=== PATIENT | male | born 1990 | race Hispanic/Latino ===

== ENCOUNTER 2022-03-25 10:44 | Emergency (ER) | payer SELFPAY ==
--- OUTSIDE RECORDS SUMMARY | 2022-03-25 10:47 | XMS REPORT | Continuity of Care Document ---
:1990 Author Organization [facility] t Address [address] [place] [address] Care Team Providers Name Role Phone PCP, DOES NOT HAVE A Primary Care Physician Unavailable Lab, Fam Pob I Attending Clinician Unavailable Alexandra KHALIL Attending Clinician Sarah Guzman MD Attending Clinician Sarah GUZMAN Attending Clinician Unavailable Sarah GUZMAN Admitting Clinician Unavailable Problems This patient has no known problems. Allergies, Adverse Reactions, Alerts Allergy Allergy Status Severity Reaction(s) Onset Inactive Treating Comm ents Source Name Type Date Date Clinician NO KNOWN Drug Active Univers ALLERGIE Class ity of S [facility] Social History Social Habit Start Date Stop Date Quantity Comments Source [facility] to SARS-CoV-2 Not sure [facility] [place] (event) [facility] Smoking Status Start Date Stop Date Source Unknown if ever smoked Universit y [facility] Medications Ordered Filled Start Stop Current Ordering Indication Dosage Frequency Signature Comments Components Source Medication Medication Date Date Medication? Clinician (SIG) Name Name cephALEXin 2020- No 500mg 500 mg, Un farhana (KEFLEX) 02-19 Oral, ONCE ity of capsule 500 20:45: 19:43 NOW, 1 Kvng as mg 00 :00 dose, [facility] 02/20/20 at Branch 1545, KRISSY
Re ason for Anti-Infec tive: Empiric Non-Surgic al Prophylaxi s
Durat ion of therapy: 72 hours acetaminoph 2019-0 Yes [id number] 1{tbl} Take 1 Univers en-codeine 02-19 [id number] tablet by it y of 300-30 mg 00:00: mouth [place] tablet 00 every 6 Medical (six) Branch hours as needed for Pain (scale 4-6) or Pain (scale 7-10). acetaminoph Yes [id number] 1{tbl} Take 1 Univers en-codeine 02-19 [id number] tablet by it y of 300-30 mg 00:00: mouth [place] tablet 00 every 6 Medical (six) Branch hours as needed for Pain (scale 4-6) or Pain (scale 7-10). cephALEXin 2020- No [id number] 500mg Take 1 Univers 500 mg 02-19 [id number] capsule by ity of capsule 00:00: 04:59 mouth 3 [place] 00 :00 (three) Medical times Branch daily for 10 days. Vital Signs Vital Name Observation Time Observation Value Comments Source Systolic blood 2020-02-20 19:26:58 116 mm[Hg] [facility] 2020-02-20 19:26:58 61 mm[Hg] [facility] 2020-02-20 19:26:58 86 /min [facility] Respiratory rate 2020-02-20 19:26:58 16 /min [facility] Oxygen saturation in 2020-02-20 19:26:58 98 /min [facility] blood by [facility] Pulse oximetry [place] Body weight 2020-02-20 16:13:00 85.276 kg [facility] Procedures Procedure Date / Time Performed Performing Clinician Sourc e XR ELBOW >3 VW LEFT 2020-02-20 17:04:58 Onur Guzman [facility] HI LAYR CLOS WND 2020-02-20 16:09:00 Onur Guzman [facility] TRUNK,ARM,LEG <2.5 CM Medical Br anch Encounters Start End Encounter Admission Attending Care Care Encounter Source Date/Time Date/Time Type Type Clinicians Facility Department ID 2020-05-01 2020-05-01 Laboratory Lab, Adc Fam Pob I [facility] [id number]. [id number] Univers 08:47:29 09:07:29 Only AlexandraGoPollGo [id number] ity of [place] [id number] Kvng as Professio [id number] Sc dical nal [address] 2020-05-01 2020-05-01 Outpatient R [facility] [id number] Univers 08:40:00 08:40:00 ity [facility] 2020-02-20 2020-02-20 Emergency Vasut, TRAUMA [id number] Univers 11:14:54 15:26:00 Onur Smith IVANHOE [id number] it y of [id number] [place] [id number] [address] 2020-02-20 2020-02-20 Emergency X VASUT, [facility] ERT [id number] Univers 11:14:54 15:26:00 ONUR [facility] Results Test Description Test Time Test Results Result Source Comments Comments Laceration 2020-01-26 Onur Guzman MD ? ? Un iversity of Repair 7 02/20/2020 ?3:12 [facility] ica 16:09:00 PMLaceration [place] RepairPerformed by: Onur Guzman MDAuthorized by: Onur Guzamn MD Consent: ?Consent obtained: ?Verbal ?Consent given by: ?Patient ?Risks discussed: ?Infection, pain, retained foreign body, poor cosmetic result, need for additional repair, tendon damage, vascular damage, poor wound healing and nerve damage ?Alternatives discussed: ?No treatment, delayed treatment and referralAnesthesia (see MAR for exact dosages): ?Anesthesia method: ?Local infiltration ?Local anesthetic: ?Lidocaine 1% w/o epiLaceration details: ?Location: ?Shoulder/arm ?Shoulder/arm location: ?L elbowRepair type: ?Repair type: ?IntermediatePre-proce dure details: ?Preparation: ?Patient was prepped and draped in usual sterile fashion and imaging obtained to evaluate for foreign bodiesExploration: ?Hemostasis achieved with: ?Direct pressure ?Wound exploration: wound explored through full range of motion and entire depth of wound probed and visualized ? ?Contaminated: yes ?Treatment: ?Area cleansed with: ?Saline ?Amount of cleaning: ?Extensive ?Irrigation solution: ?Sterile saline ?Irrigation method: ?Pressure wash ?Visualized foreign bodies/material removed: no ?Skin repair: ?Repair method: ?Sutures ?Suture size: ?3-0 ?Suture material: ?ProleneApproximation: ?Approximation: ?LoosePost-procedure details: ?Dressing: ?Antibiotic ointment, non-adherent dressing, sterile dressing and tube gauze ?Patient tolerance of procedure: ?Tolerated well, no immediate complications
[2022-03-25 12:01] LABS: Potassium 3.8 mmol/L (3.5-5.1)
--- NOTE | 2022-03-25 12:47 | RAD REPORT ---
EXAM DESCRIPTION: CT - Lower Ext Angio - 03/25/2022 12:34 pm CLINICAL HISTORY: Trauma, possible dislocation COMPARISON: No comparisons FINDINGS: CT angiogram of the left lower extremity arterial system was performed. No significant flow abnormality of the left lower extremity arterial system is seen. No soft tissue mass or hematoma. No acute fracture seen. Small to moderate knee joint effusion is maribel dent. IMPRESSION: No significant flow abnormality is seen in the left lower extremity arterial system. Small to moderate knee joint effusion. All CT scans are performed using dose optimization technique as appropriate and may include automated exposure control or mA/KV adjustment according to patient size.
--- NOTE | 2022-03-25 12:51 | EDPHYS ---
Physician Documentation [facility] Name: Brennan Muniz Age: 31 yrs Sex: Male : 1990 Arrival Date: 03/25/2022 Time: 10:46 Bed 12 Private MD: ED Physician Devonte Mayer HPI: 03/25 12:50 This 31 yrs old Male presents to ER via Wheelchair with complaints of Knee ms3 Pain. 12:50 The patient presents with pain, that is acute. The complaints affect the left knee. ms3 Context: The problem was sustained outdoors, resulted from jumped up to catch a ball while playing kickball. Onset: The symptoms/episode began/occurred yesterday. Modifying factors: The symptoms are alleviated by nothing. the symptoms are aggravated by movement. Associated signs and symptoms: The patient has no apparent associated signs or symptoms. ROS: 12:50 Constitutional: Negative for fever, and chills. Neck: Negative for injury, pain, and ms3 swelling, Cardiovascular: Negative for chest pain, and palpitations. Respiratory: Negative for shortness of breath, cough, wheezing, and pleuritic chest pain, Abdomen/GI: Negative for abdominal pain, nausea, vomiting, diarrhea, and constipation. 12:50 MS/extremity: Positive for pain, tenderness. 12:50 All other systems are negative. Exam: 12:50 Constitutional: This is a well developed, well nourished patient who is awake, alert, ms3 and in no acute distress. Head/Face: Normocephalic, atraumatic. Neck: Trachea midline, no cervical lymphadenopathy. Supple, full range of motion without nuchal rigidity, or vertebral point tenderness. No Meningismus. Chest/axilla: Normal chest wall appearance and motion. Nontender with no deformity. Cardiovascular: Regular rate and rhythm with a normal S1 and S2. No gallops, murmurs, or rubs. Normal PMI, no JVD. No pulse deficits. Respiratory: Lungs have equal breath sounds bilaterally, clear to auscultation and percussion. No rales, rhonchi or wheezes noted. No increased work of breathing, no retractions or nasal flaring. Abdomen/GI: Soft, non-tender, with normal bowel sounds. No distension or tympany. No guarding or rebound. No evidence of tenderness throughout. Skin: Warm, dry with normal turgor. Normal color with no rashes, no lesions, and no evidence of cellulitis. 12:50 Musculoskeletal/extremity: Extremities: noted in the left knee: pain, swelling, tenderness. Vital Signs: 11:30 BP 124 / 86; Pulse 89; Resp 16; Temp 98.0; Pulse Ox 100% on R/A; iw MDM: 11:16 Patient medically screened. ms3 12:50 Differential diagnosis: dislocation, closed fracture, contusion. Data reviewed: vital ms3 signs, nurses notes, lab test result(s), radiologic studies. ED course: Discussed lab, CTA lower extremity, physical exam findings with patient. Patient to follow-up with Dr. Webb in 2 to 3 days. Patient understands and agrees with plan. All questions were answered. Return precautions discussed include worsening symptoms, or any other concerns. On reevaluation patient symptoms improved, patient is alert and oriented x4, no apparent distress, nontoxic appearing, no signs of compartment syndrome.. 03/25 11:20 Order name: BMP; Complete Time: 12:05 ms3 03/25 11:24 Order name: Lower Ext Angio; Complete Time: 12:49 EDMS 03/25 12:51 Order name: Knee Immobilizer; Complete Time: 13:41 ms3 03/25 12:51 Order name: Crutches; Complete Time: 13:42 ms3 Administered Medications: No medications were administered Disposition Summary: 03/25/22 12:50 Discharge Ordered Location: Home ms3 Condition: Stable ms3 Diagnosis - Pain in left knee ms3 - Effusion, left knee ms3 Followup: ms3 - With: Steven Webb MD - When: 2 - 3 days - Reason: Re-evaluation by your physician Discharge Instructions: - Discharge Summary Sheet ms3 - Knee Effusion ms3 Forms: - Medication Reconciliation Form ms3 - Thank You Letter ms3 - Antibiotic Education ms3 - Work release form iw - Prescription Opioid Use ms3 Signatures: Dispatcher [employer] EDMS Devonte Mayer DO DO ms3
--- NOTE | 2022-03-25 12:51 | ER ---
Nurse's Notes [facility] Name: Brennan Muniz Age: 31 yrs Sex: Male : 1990 Arrival Date: 03/25/2022 Time: 10:46 Bed 12 Private MD: Diagnosis: Pain in left knee;Effusion, left knee Presentation: 03/25 11:18 Chief complaint: Patient states: left knee pain since last night. Coronavirus screen: iw At this time, the client does not indicate any symptoms associated with coronavirus-19. Ebola Screen: Patient negative for fever greater than or equal to 101.5 degrees Fahrenheit, and additional compatible Ebola Virus Disease symptoms Patient denies exposure to infectious person. Patient denies travel to an Ebola-affected area in the 21 days before illness onset. No symptoms or risks identified at this time. Initial Sepsis Screen: Does the patient meet any 2 criteria? No. Patient's initial sepsis screen is negative. Does the patient have a suspected source of infection? No. Patient's initial sepsis screen is negative. Risk Assessment: Do you want to hurt yourself or someone else? Patient reports no desire to harm self or others. Onset of symptoms was March 24, 2022. 11:18 Method Of Arrival: Wheelchair iw 11:18 Acuity: JORGITO 3 iw Assessment: 11:30 General: Appears in no apparent distress. Behavior is calm, cooperative. Pain: iw Complains of pain in left knee. Neuro: Smith Agitation-Sedation Scale (RASS): Level of Consciousness is awake, alert, obeys commands, Oriented to person, place, time, situation. Vital Signs: 11:30 BP 124 / 86; Pulse 89; Resp 16; Temp 98.0; Pulse Ox 100% on R/A; iw ED Course: 10:46 Patient arrived in ED. mr 10:52 Devonte Mayer DO is Attending Physician. ms3 11:19 Triage completed. iw 11:19 Arm band placed on. iw 11:23 Hyacinth Roland, JERMAINE is Primary Nurse. iw 11:39 Inserted saline lock: 20 gauge in left antecubital area, using aseptic technique. Blood tp1 collected. 12:36 Lower Ext Angio In Process Unspecified. EDMS 12:49 Steven Webb MD is Referral Physician. ms3 13:50 No provider procedures requiring assistance completed. Patient did not have IV access iw during this emergency room visit. Administered Medications: No medications were administered Outcome: 12:50 Discharge ordered by MD. noe 13:51 Patient left the ED. iw Signatures: Dispatcher [employer] EDDary Vera Irene RN RN iw Devonte Mayer DO DO ms3 April Wiggins tp1
== END 2022-03-25 13:51 | disposition home or self-care (01) ==
LOC: ER 10:44
DX: M25.462 Effusion, left knee (principal)
CPT/HCPCS: 36415; 73706; 80048; 99283; Q9967

== ENCOUNTER 2022-08-12 05:59 | Day surgery (SDC) | payer OTHER, SELFPAY ==
[2022-08-08 10:41] LABS: Absolute Lymphocytes (CBC) 1.8 K/uL (0.7-4.9); Hematocrit 43.1 % (39.6-49.0); Lymphocytes % 30.6 % (15.3-44.8); MPV 8.3 fL (7.6-11.3); RBC Red Blood Cell Count 4.59 M/uL (4.33-5.43)
[2022-08-08 11:47] LABS: SARS-CoV-2 Antigen Rapid Res Negative (Negative)
[2022-08-12] MEDS ORDERED: CEFAZOLIN SODIUM 1 GM/VIAL ONE (06:02)
[2022-08-12] MEDS ORDERED: MIDAZOLAM HCL 2 MG/2 ML INJ ONE ×2 (06:02→07:09)
[2022-08-12] MEDS ORDERED: Ringers Lactate 1,000 ML IV ONE (06:02)
[2022-08-12] MEDS ORDERED: BUPIVACAINE 0.25% PF 10 ML VIAL ONE (07:09)
[2022-08-12] MEDS ORDERED: BUPIVACAINE 0.5% PF 10 ML VIAL ONE (07:09)
[2022-08-12] MEDS ORDERED: NS 0.9% VIAL 10 ML ONE (07:09)
[2022-08-12] MEDS ORDERED: EPINEPHRINE/PF 1 MG/ML AMP ONE (07:09)
[2022-08-12] MEDS ORDERED: LIDOCAINE 1% MPF 5 ML VIAL ONE (07:09)
[2022-08-12] MEDS ORDERED: propofoL 200 MG/20 ML VIAL IV ONE ×2 (07:09)
[2022-08-12] MEDS ORDERED: LIDOCAINE 2% MPF 5 ML VIAL ONE (07:09)
[2022-08-12] MEDS ORDERED: FENTANYL CITR 100 MCG/2 ML ONE (07:09)
[2022-08-12] MEDS ORDERED: ONDANSETRON 4 MG/2 ML VIAL ONE (07:09)
[2022-08-12] MEDS ORDERED: KETOROLAC 30 MG/ML INJ ONE (07:09)
[2022-08-12] MEDS ORDERED: dexAMETHasone 10 MG/ML VIAL ONE (07:09)
[2022-08-12 10:42] VITALS: BP 117/75; TEMP 97; O2SAT 100
--- NOTE | 2022-08-12 12:45 | OP ---
Date of Procedure: 08/12/2022 Surgeon: Steven Webb MD Preoperative Diagnosis: Left knee anterior cruciate ligament complete tear. Postoperative Diagnosis: Left knee anterior cruciate ligament complete tear. Procedure: Left knee Achilles tendon allograft reconstruction of the anterior cruciate ligament. Estimated Blood Loss: Less than 10 cc. Complications: There were no complications. Indications For Operation: Mr. Muniz is a 31-year-old male who unfortunately injured his left knee . He came to see me in my office with continued complaints of pain, swelling, and instability of his knee. He had an MRI, which demonstrated an ACL tear. We discussed risks, benefits, and alternative s at that time. He wanted to see how he would do without operative intervention or at least delay th is until he was better prepared. He came back to my office with desire to proceed with ACL reconstru ction as he has had continued pain, problems, and instability. Risks, benefits, and alternatives of different methods of treating this have been discussed with him including the use of allograft as wel l as other issues including the possibility of infection, failure, or retear. He says he understands things as presented and wishes to proceed. Description Of Procedure: Patient was taken to the operating room, placed in supine position, genera l anesthesia was obtained by staff. He has previously had a block. Left lower extremity was prepped and draped in usual sterile fashion for the procedure after a tourniquet was placed on the superior left thigh. The graft is being prepared by per diem physical therapist assistant on the back table and was prepared in standard fashion. A standard superomedial arthroscopy portal was then made with liberation approximately 30 c c of rather normal-appearing synovial fluid. This was followed by placement of an inferolateral arth roscopy portal. The knee was then sequentially examined including suprapatellar pouch, medial and la teral gutters, medial and lateral compartment as well as the notch and patellofemoral joint. Pertine nt findings included obvious ACL disruption with an empty notch, retracted ACL fibers. The medial me niscus and lateral meniscus appeared to be free of pathology as well as medial and lateral condyle. A significant amount of time was used to debride fat pad, soft tissue from the ACL, ACL stump area as well as the notch. A krystal was used for a slight notchplasty on both the medial femoral condyle as w ell as the roof. After appropriate soft tissue had been removed, the graft is ready and the Arthrex reamer was set at 55. The aiming guide was placed in the perceived ACL footprint and an incision was made at the appropriate position of the barrel. The barrel was then gently advanced to the bone and a tibial guide pin was then placed. It was then reamed to a size 10 without difficulty. After this , the back wall guide was then used to establish the posterior wall and the Beath pin was then placed through the femur. The guide was then removed and the femoral tunnel was then reamed to approximate ly 25 mm. The bone plug was measured at 20 mm. The graft was then fed through the tibia and gently the sutures are passed. A probe was used to nudge the bone plug into the tunnel and it was then sunk . After this, the notch was used and a size 8 Arthrex interference screw was then placed. It was pl aced very easily with good bite. After this, the knee was then cycled without sign of slippage and/o r an isometry appeared to be ideal. After this, it was held on tension with very slight flexion and minimal posterior drawer as the tibial screw size 10 x 30 was then placed. It was advanced until it is essentially flushed with the tibia. After this, remaining tibial protuberant of the graft was res ected. The knee was then brought through full range of motion. It comes to full extension without d ifficulty. Nick was very solid. The skin was then closed using 2-0 Vicryl sutures for the tibial tunnel aperture skin. This was followed by constantine of the remaining 3 portals and the FiberWire was removed without difficulty. After this, he was placed in a very well padded sterile dressing as wel l as a knee immobilizer. He was awakened and taken to recovery room. /SHIN Voice ID: [id number] Report ID: [id number]
== END 2022-08-12 10:25 | disposition home or self-care (01) ==
LOC: OR 05:59
PROVIDERS: ATTEND Orthopaedic Surgery
PROC: 0LUR4KZ Supplement Left Knee Tendon with Nonautologous Tissue Substitute, Percutaneous Endoscopic Approach (ICD-10-PCS; 2022-08-12)
PROC: 0LUR4KZ Supplement Left Knee Tendon with Nonautologous Tissue Substitute, Percutaneous Endoscopic Approach (ICD-10-PCS; principal; 2022-08-12 07:00)
DX: S83.512A Sprain of anterior cruciate ligament of left knee, initial encounter (principal); M25.562 Pain in left knee; Z01.812 Encounter for preprocedural laboratory examination; Z20.822 Contact with and (suspected) exposure to COVID-19
CPT/HCPCS: 27652; 29888 ×2; 85025; 80048; 36415; 87811; J2704; J0171; J2001 ×2; J2250 ×2; J3010; J1100; A4216; J7120; J2405; J0690